=== PATIENT | male | born 1955 | race Caucasian/White ===

== ENCOUNTER 2025-05-24 17:51 | Emergency (ER) | payer OTHER, SELFPAY ==
[2025-05-24 17:57] VITALS: BP 195/90; PULSE 102; RESP 18; TEMP 36.8; O2SAT 98; BMI 21.5
--- NOTE | 2025-05-24 18:04 | ED_ITS ---
HPI - General Adult
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
[2025-05-24] MEDS: LOSARTAN 50 MG TABLET 100 MG PO (18:31)
== END 2025-05-24 19:19 | disposition left against medical advice (07) ==
PROVIDERS: Emergency Provider Emergency Medicine; PCP Internal Medicine
DX: I95.9 Hypotension, unspecified (principal)
CPT/HCPCS: 99283